=== PATIENT | male | born 1965 | race Caucasian/White ===

== ENCOUNTER 2022-05-19 16:07 | Inpatient (IN) | payer OTHER ==
[2022-05-19 18:28] VITALS: BMI 22.8
[2022-05-19] MEDS ORDERED: IBUPROFEN 400 MG TABLET (FP) PO PRN (19:56)
[2022-05-19] MEDS ORDERED: hydrOXYzine PAMOATE 25 MG CAPSULE (FP) PO PRN (19:56)
[2022-05-19] MEDS ORDERED: NICOTINE POLACRILEX 2 MG GUM BUC PRN (19:56)
[2022-05-19] MEDS ORDERED: DICYCLOMINE HCL 10 MG CAPSULE PO PRN (19:56)
[2022-05-19] MEDS ORDERED: IBUPROFEN 600 MG TABLET (FP) PO PRN (19:56)
[2022-05-19] MEDS ORDERED: P-EPHED 60MG/TRIPROLIDI 2.5MG TABLET PO PRN (19:56)
[2022-05-19] MEDS ORDERED: BENZOCAINE/MENTHOL (CHLORASEPTIC ) LOZENGE MM PRN (19:56)
[2022-05-19] MEDS ORDERED: ACETAMINOPHEN 325 MG TABLET (FP) PO PRN ×2 (19:56)
[2022-05-19] MEDS ORDERED: MAGNESIUM CITRATE 300 ML BOTTLE PO PRN (19:56)
[2022-05-19] MEDS ORDERED: MAG HYDROX/AL HYDROX/SIMETH 30 ML UNIT-DOSE CUP PO PRN (19:56)
[2022-05-19] MEDS ORDERED: BISMUTH SUBSALICYLATE 524 MG/30 ML PO PRN (19:56)
[2022-05-19] MEDS ORDERED: LOPERAMIDE HCL 2 MG CAPSULE PO PRN (19:56)
[2022-05-19] MEDS ORDERED: MAGNESIUM HYDROX 2400MG/30ML ORAL SUSPENSION 30 ML CUP PO PRN (19:56)
[2022-05-19] MEDS ORDERED: NICOTINE 10 MG CARTRIDGE (INHALER) IH PRN (19:56)
[2022-05-19] MEDS ORDERED: METHOCARBAMOL 500 MG TABLET PO PRN (19:56)
[2022-05-19] MEDS ORDERED: ONDANSETRON *ODT* 4 MG TABLET SL PRN (19:56)
[2022-05-19] MEDS ORDERED: diazePAM 5 MG TABLET PO PRN (19:58)
[2022-05-20] MEDS: THIAMINE HCL 100 MG TABLET (FP) PO SCH ×2 (00:02→22:43)
[2022-05-20] MEDS: MELATONIN 5 MG TABLETS PO PRN ×2 (00:02→22:43)
[2022-05-20] MEDS: diazePAM 5 MG TABLET PO SCH ×5 (00:02→22:43)
[2022-05-20] MEDS: PRENATAL VITAMINS W/ FOLIC ACID TABLET (FP) PO SCH (10:33)
[2022-05-20 11:37] LABS: HEMATOCRIT 31.4 % (35.4-49); HEMOGLOBIN 10.6 GM/dL (11.7-16.9); MCH 33.2 pg (25.7-33.7); MCHC 33.8 g/dl (32.0-35.9); MEAN CELL VOLUME 98.4 fl (80-96); MEAN PLT VOLUME 8.4 fl (7.5-11.1); PLATELET COUNT 176 10^3/uL (134-434); RBC 3.19 M/mm3 (4.00-5.60); RDW 16.6 % (11.9-15.9); WHITE BLOOD COUNT 3.7 K/mm3 (4.0-10.0)
[2022-05-20 12:13] LABS: BLOOD UREA NITROGEN 23.7 mg/dL (7-18)
[2022-05-20 12:19] LABS: CALCIUM 9.1 mg/dL (8.5-10.1)
[2022-05-20 12:20] LABS: ALBUMIN 3.5 g/dl (3.4-5.0)
[2022-05-20 12:22] LABS: CREATININE 0.8 mg/dL (0.55-1.3)
[2022-05-20 12:24] LABS: BILIRUBIN,TOTAL 0.5 mg/dL (0.2-1)
[2022-05-20 12:25] LABS: TOT PROT 6.6 g/dl (6.4-8.2)
[2022-05-20 12:38] LABS: HIV INTERPRETATION NEGATIVE (NEGATIVE)
[2022-05-21] MEDS: diazePAM 5 MG TABLET PO SCH ×3 (06:34→22:26)
[2022-05-21] MEDS: PRENATAL VITAMINS W/ FOLIC ACID TABLET (FP) PO SCH (10:43)
[2022-05-21] MEDS: THIAMINE HCL 100 MG TABLET (FP) PO SCH (22:26)
[2022-05-21] MEDS: MELATONIN 5 MG TABLETS PO PRN (22:26)
[2022-05-22] MEDS: diazePAM 5 MG TABLET PO SCH ×2 (05:56→18:08)
[2022-05-22] MEDS: PRENATAL VITAMINS W/ FOLIC ACID TABLET (FP) PO SCH (10:47)
[2022-05-22] MEDS: MELATONIN 5 MG TABLETS PO PRN (22:10)
[2022-05-22] MEDS: THIAMINE HCL 100 MG TABLET (FP) PO SCH (22:10)
[2022-05-23] MEDS ORDERED: diazePAM 5 MG TABLET PO ONE (06:00)
[2022-05-23 09:37] VITALS: BP 106/70; PULSE 69; TEMP 96.9
[2022-05-23] MEDS: PRENATAL VITAMINS W/ FOLIC ACID TABLET (FP) PO SCH (10:14)
== END 2022-05-23 11:47 | disposition home or self-care (01) | DRG 897 ==
LOC: YASAS 16:07 → Y3N 22:22
PROVIDERS: ADMIT Allergy & Immunology; ATTEND Surgery
PROC: HZ2ZZZZ Detoxification Services for Substance Abuse Treatment (ICD-10-PCS; principal; 2022-05-19)
DX: F10.230 Alcohol dependence with withdrawal, uncomplicated (principal); F17.210 Nicotine dependence, cigarettes, uncomplicated; D64.9 Anemia, unspecified; J41.0 Simple chronic bronchitis; K21.9 Gastro-esophageal reflux disease without esophagitis; M20.12 Hallux valgus (acquired), left foot; Z86.59 Personal history of other mental and behavioral disorders
CPT/HCPCS: 36415; 80053; 85027; 86780; 87389; C9803-CS; U0003; U0005

== ENCOUNTER 2022-06-29 11:25 | Inpatient (IN) | payer OTHER ==
[2022-06-29] MEDS ORDERED: LOPERAMIDE HCL 2 MG CAPSULE PO PRN (14:40)
[2022-06-29] MEDS ORDERED: MAGNESIUM HYDROX 2400MG/30ML ORAL SUSPENSION 30 ML CUP PO PRN (14:40)
[2022-06-29] MEDS ORDERED: IBUPROFEN 600 MG TABLET (FP) PO PRN (14:40)
[2022-06-29] MEDS ORDERED: chlordiazePOXIDE HCL 25 MG CAPSULE PO PRN (14:40)
[2022-06-29] MEDS ORDERED: ONDANSETRON *ODT* 4 MG TABLET SL PRN (14:40)
[2022-06-29] MEDS ORDERED: ACETAMINOPHEN 325 MG TABLET (FP) PO PRN ×2 (14:40)
[2022-06-29] MEDS ORDERED: BISMUTH SUBSALICYLATE 524 MG/30 ML PO PRN (14:40)
[2022-06-29] MEDS ORDERED: NICOTINE 10 MG CARTRIDGE (INHALER) IH PRN (14:40)
[2022-06-29] MEDS ORDERED: IBUPROFEN 400 MG TABLET (FP) PO PRN (14:40)
[2022-06-29] MEDS ORDERED: DICYCLOMINE HCL 10 MG CAPSULE PO PRN (14:40)
[2022-06-29] MEDS ORDERED: MAG HYDROX/AL HYDROX/SIMETH 30 ML UNIT-DOSE CUP PO PRN (14:40)
[2022-06-29] MEDS ORDERED: METHOCARBAMOL 500 MG TABLET PO PRN (14:40)
[2022-06-29] MEDS ORDERED: MAGNESIUM CITRATE 300 ML BOTTLE PO PRN (14:40)
[2022-06-29] MEDS ORDERED: BENZOCAINE/MENTHOL (CHLORASEPTIC ) LOZENGE MM PRN (14:40)
[2022-06-29 15:02] VITALS: BMI 21.7
[2022-06-29] MEDS: chlordiazePOXIDE HCL 25 MG CAPSULE PO SCH ×2 (18:46→23:03)
[2022-06-29] MEDS: MELATONIN 5 MG TABLETS PO SCH (22:51)
[2022-06-29] MEDS: THIAMINE HCL 100 MG TABLET (FP) PO SCH (22:51)
[2022-06-30] MEDS: chlordiazePOXIDE HCL 25 MG CAPSULE PO SCH ×4 (06:13→22:44)
[2022-06-30] MEDS: PRENATAL VITAMINS W/ FOLIC ACID TABLET (FP) PO SCH (09:48)
[2022-06-30] MEDS: NICOTINE 7 MG/24 HOURS TOPICAL PATCH TD SCH (09:48)
[2022-06-30] MEDS: amLODIPine BESYLATE 2.5 MG TABLET (FP) PO SCH (13:17)
[2022-06-30 17:57] LABS: HEMATOCRIT 36.8 % (35.4-49); HEMOGLOBIN 12.7 GM/dL (11.7-16.9); MCH 32.7 pg (25.7-33.7); MCHC 34.6 g/dl (32.0-35.9); MEAN CELL VOLUME 94.6 fl (80-96); MEAN PLT VOLUME 7.9 fl (7.5-11.1); PLATELET COUNT 308 10^3/uL (134-434); RBC 3.89 M/mm3 (4.00-5.60); RDW 14.5 % (11.9-15.9)
[2022-06-30 18:05] LABS: ALBUMIN 3.7 g/dl (3.4-5.0); CALCIUM 8.9 mg/dL (8.5-10.1)
[2022-06-30 18:06] LABS: BLOOD UREA NITROGEN 11.6 mg/dL (7-18)
[2022-06-30 18:08] LABS: CREATININE 0.8 mg/dL (0.55-1.3)
[2022-06-30 18:10] LABS: BILIRUBIN,TOTAL 0.7 mg/dL (0.2-1); TOT PROT 6.9 g/dl (6.4-8.2)
[2022-06-30] MEDS: MELATONIN 5 MG TABLETS PO SCH (22:45)
[2022-06-30] MEDS: THIAMINE HCL 100 MG TABLET (FP) PO SCH (22:45)
[2022-07-01] MEDS: chlordiazePOXIDE HCL 25 MG CAPSULE PO SCH ×4 (05:39→22:36)
[2022-07-01] MEDS: amLODIPine BESYLATE 2.5 MG TABLET (FP) PO SCH (10:40)
[2022-07-01] MEDS: hydrOXYzine PAMOATE 25 MG CAPSULE (FP) PO PRN (10:40)
[2022-07-01] MEDS: PRENATAL VITAMINS W/ FOLIC ACID TABLET (FP) PO SCH (10:40)
[2022-07-01] MEDS: NICOTINE 7 MG/24 HOURS TOPICAL PATCH TD SCH (10:41)
[2022-07-01] MEDS: MELATONIN 5 MG TABLETS PO SCH (22:36)
[2022-07-01] MEDS: THIAMINE HCL 100 MG TABLET (FP) PO SCH (22:36)
[2022-07-02] MEDS ORDERED: chlordiazePOXIDE HCL 10 MG CAPSULE PO PRN
[2022-07-02] MEDS: chlordiazePOXIDE HCL 10 MG CAPSULE PO SCH ×4 (06:11→22:17)
[2022-07-02] MEDS: PRENATAL VITAMINS W/ FOLIC ACID TABLET (FP) PO SCH (10:56)
[2022-07-02] MEDS: NICOTINE 7 MG/24 HOURS TOPICAL PATCH TD SCH (10:57)
[2022-07-02] MEDS: amLODIPine BESYLATE 2.5 MG TABLET (FP) PO SCH (12:42)
[2022-07-02] MEDS: hydrOXYzine PAMOATE 25 MG CAPSULE (FP) PO PRN ×2 (18:13→22:17)
[2022-07-02] MEDS: MELATONIN 5 MG TABLETS PO SCH (22:17)
[2022-07-02] MEDS: THIAMINE HCL 100 MG TABLET (FP) PO SCH (22:17)
[2022-07-03] MEDS: chlordiazePOXIDE HCL 10 MG CAPSULE PO SCH ×2 (06:18→17:26)
[2022-07-03] MEDS: PRENATAL VITAMINS W/ FOLIC ACID TABLET (FP) PO SCH (10:47)
[2022-07-03] MEDS: amLODIPine BESYLATE 2.5 MG TABLET (FP) PO SCH (10:47)
[2022-07-03] MEDS: NICOTINE 7 MG/24 HOURS TOPICAL PATCH TD SCH (10:47)
[2022-07-03] MEDS: hydrOXYzine PAMOATE 25 MG CAPSULE (FP) PO PRN (22:20)
[2022-07-03] MEDS: MELATONIN 5 MG TABLETS PO SCH (22:20)
[2022-07-03] MEDS: THIAMINE HCL 100 MG TABLET (FP) PO SCH (22:20)
[2022-07-03 22:43] VITALS: RESP 18
[2022-07-04] MEDS ORDERED: chlordiazePOXIDE HCL 10 MG CAPSULE PO ONE (05:00)
[2022-07-04 06:59] VITALS: BP 111/61; PULSE 70; TEMP 97.4
[2022-07-04] MEDS: NICOTINE 7 MG/24 HOURS TOPICAL PATCH TD SCH (10:11)
[2022-07-04] MEDS: PRENATAL VITAMINS W/ FOLIC ACID TABLET (FP) PO SCH (10:12)
[2022-07-04] MEDS: amLODIPine BESYLATE 2.5 MG TABLET (FP) PO SCH (10:12)
== END 2022-07-04 10:30 | disposition home or self-care (01) | DRG 897 ==
LOC: YASAS 11:25 → Y6N 14:48
PROVIDERS: ADMIT Allergy & Immunology; ATTEND Surgery
PROC: HZ2ZZZZ Detoxification Services for Substance Abuse Treatment (ICD-10-PCS; principal; 2022-06-29)
DX: F10.230 Alcohol dependence with withdrawal, uncomplicated (principal); F17.213 Nicotine dependence, cigarettes, with withdrawal; J41.0 Simple chronic bronchitis; K21.9 Gastro-esophageal reflux disease without esophagitis; Z99.89 Dependence on other enabling machines and devices
CPT/HCPCS: 36415; 80053; 82962; 85027; 86780; 93005; 93010; C9803-CS; U0003; U0005